=== PATIENT | male | born 1960 | race Caucasian/White ===

== ENCOUNTER → 2017-05-21 | Emergency (ER) | payer OTHER ==
[~2017-05-21] VITALS: Ht 198.1 cm; Wt 113.4 kg
[~2017-05-21] MED LIST: GRALISE300 MG; MELOXICAM15 MG; PERCOCET 10-321 EACH PO; PERCOCET 5-3251 EACH PO; PRADAXA150 MG
== END | disposition home or self-care (01) ==
LOC: ER 09:20
DX: M25.561 Pain in right knee (principal); M23.300 Other meniscus derangements, unspecified lateral meniscus, right knee

== ENCOUNTER 2017-06-13 11:22 | Emergency (ER) | payer OTHER ==
[~2017-06-13] VITALS: Ht 198.1 cm; Wt 113.4 kg
[~2017-06-13 11:22] MED LIST changes: -GRALISE300 MG; -PERCOCET 10-321 EACH PO
[2017-06-13] MEDS ORDERED: PERCOCET 5-3251 EACH PO (13:40)
[2017-06-13] MEDS ORDERED: PERCOCET 10-321 EACH PO (13:42)
[2017-07-10] MEDS ORDERED: GRALISE300 MG (06:11)
[2017-07-10] MEDS ORDERED: PERCOCET 10-321 EACH PO (07:52)
== END 2017-06-13 13:59 | disposition home or self-care (01) ==
LOC: ER 11:22
DX: M25.561 Pain in right knee (principal); M23.300 Other meniscus derangements, unspecified lateral meniscus, right knee

== ENCOUNTER → 2017-07-10 | Emergency (ER) | payer OTHER ==
[~2017-07-10] VITALS: Ht 198.1 cm; Wt 117.9 kg
[~2017-07-10] MED LIST changes: +GRALISE300 MG; +PERCOCET 10-321 EACH PO
== END | disposition home or self-care (01) ==
LOC: ER 06:01
DX: M25.561 Pain in right knee (principal); G89.11 Acute pain due to trauma; S80.01XS Contusion of right knee, sequela